=== PATIENT | female | born 1970 | race Caucasian/White ===

== ENCOUNTER 2021-05-23 15:36 | Emergency (ER) | payer OTHER ==
[2021-05-23] MEDS ORDERED: Proparacaine 0.5% Ophth Soln 15 ML Bottle EYELF ONE (16:13)
--- NOTE | 2021-05-23 16:37 | EDM.PDOC ---
ED HPI GENERAL MEDICAL PROBLEM - General Chief Complaint: ENT Problem Stated Complaint: SOMETHING OR SCRATCH LEFT EYE Time Seen by Provider: 05/23/21 16:20 Source of Information: Reports: Patient, Family History Limitations: Reports: No Limitations - History of Present Illness INITIAL COMMENTS - FREE TEXT/NARRATIVE: 51-year-old female with a foreign body sensation in her left eye for the past 4 hours. Her neighbors were doing some yard work and the wind blew up and blew something into her eye. They tried to flush it out several times but were unsuccessful. It is the left eye, patient is not affected Onset: Sudden Duration: Hour(s): (4 hours ago) Location: Reports: Other (Left eye) Associated Symptoms: Reports: No Other Symptoms Left Eye Pain Score (Numeric/FACES): 9 - Related Data Allergies Allergy/AdvReac Type Severity Reaction Status Date / Time No Known Allergies Allergy Verified 05/23/21 16:07 Home Meds: Home Meds Albuterol Sulfate [Albuterol Sulfate Hfa] 2 puff IN ASDIRECTED PRN 05/23/21 [History] Cholecalciferol (Vitamin D3) [Vitamin D] 5,000 unit PO DAILY 05/23/21 [History] Escitalopram [Lexapro] 20 mg PO DAILY 05/23/21 [History] lisinopriL [Lisinopril] 10 mg PO DAILY 05/23/21 [History] Past Medical History HEENT History: Reports: Other (See Below) Other HEENT History: Scratched cornia with surgical repair Respiratory History: Reports: Asthma Social & Family History - Tobacco Use Tobacco Use Status *Q: Never Tobacco User - Recreational Drug Use Recreational Drug Use: No ED ROS ENT - Review of Systems Review Of Systems: See Below Constitutional: Denies: Fever, Chills HEENT: Reports: Other (Strong foreign body sensation in the left eye). Denies: Vision Change Respiratory: Denies: Shortness of Breath Cardiovascular: Reports: No Symptoms Skin: Reports: No Symptoms Neurological: Reports: No Symptoms Psychiatric: Reports: No Symptoms ED EXAM, ENT - Physical Exam Exam: See Below Exam Limited By: No Limitations General Appearance: Alert, No Apparent Distress (Looks uncomfortable but not distressed) Eye Exam: Left Eye: Conjunctival Injection, Foreign Body Head: Atraumatic Respiratory/Chest: No Respiratory Distress Neurological: Alert, Oriented Psychiatric: Normal Affect, Normal Mood Skin: Warm, Dry Course - Vital Signs Last Recorded V/S: Last Vital Signs Temp 97.6 F 05/23/21 16:21 Pulse 82 05/23/21 16:21 Resp 16 05/23/21 16:21 BP 157/70 H 05/23/21 16:21 Pulse Ox 96 05/23/21 16:21 - Orders/Labs/Meds Meds: Medications Discontinued Medications Generic Name Dose Route Start Last Admin Trade Name Hiro PRN Reason Stop Dose Admin Proparacaine HCl 1 ml 05/23/21 16:13 05/23/21 16:19 Proparacaine 0.5% Ophth Soln 15 Ml Bottle EYELF 05/23/21 16:14 1 ml ONETIME ONE Administration - Re-Assessments/Exams Free Text/Narrative Re-Assessment/Exam: 05/23/21 16:36 Proparacaine was used anesthetize the left eye. The eye was then fluorescein stained and appeared normal. She was then examined with the slit lamp, there was no corneal abrasion seen. No foreign body of the lower lid was seen. When the upper eyelid was inverted, there was a small pale foreign body attached to the conjunctiva on the medial aspect of the upper eyelid. It appeared to be a small piece of a seed. This was removed with a proparacaine soaked Q-tip without problem. Departure - Departure Time of Disposition: 16:44 Disposition: Home, Self-Care 01 Clinical Impression: Foreign body of eyelid, left - Discharge Information Instructions: Eye Foreign Body, [id number] Referrals: HARESH JEFFERY [Other] Forms: ED Department Discharge Care Plan Goals: Your symptoms should improve rapidly over the course of the next few hours. Recheck in the next day or 2 if symptoms persist. Sepsis Event Note (ED) - Evaluation Sepsis Screening Result: No Definite Risk - Focused Exam Vital Signs: Vital Signs Temp Pulse Resp BP Pulse Ox 05/23/21 16:21 97.6 F 82 16 157/70 H 96 05/23/21 16:19 97.6 F 82 16 157/70 H 96
== END 2021-05-23 16:50 | disposition home or self-care (01) ==
LOC: JP.ED 15:36
DX: T15.92XA Foreign body on external eye, part unspecified, left eye, initial encounter (principal); Z79.899 Other long term (current) drug therapy
CPT/HCPCS: 65205; 99283; A9270